=== PATIENT | male | born 1970 | race African-American/Black ===

== ENCOUNTER 2020-03-28 14:48 | Emergency (ER) | payer OTHER, BC ==
[2020-03-28] MEDS ORDERED: Ibuprofen 600 MG Tab PO ONE (15:46)
--- NOTE | 2020-03-28 15:54 | EDM.PDOC ---
ED HPI GENERAL MEDICAL PROBLEM - General Chief Complaint: Skin Complaint Stated Complaint: SZYMANSKI BITE ON TOES Time Seen by Provider: 03/28/20 15:03 - History of Present Illness INITIAL COMMENTS - FREE TEXT/NARRATIVE: CHIEF COMPLAINT(S): Bilateral feet pain HISTORY OF PRESENT ILLNESS: This is a 49-year-old man without any significant past medical history who comes to the emergency department with a chief complaint of bilateral foot pain. The patient states that he thinks he has frostbite. He states that he has been experiencing bilateral foot pain which he describes as burning like [id number]. He denies any history of diabetes mellitus. He rates his pain as 5 out of 10. He denies any radiation of this pain. He states that the pain does start in his distal ends of his toes approximately 3 days ago and it is now spread to the bottom and the side of his foot. He denies any rash, fever or chills. He denies any injury to his feet. He states that he has taken aspirin without any relief. He states that at work he wears steel toe boots with wool socks and does have exposure to cold weather. He denies any numbness. He states the pain is worse when he stands on it or touches it. He denies any relieving symptoms. REVIEW OF SYSTEMS: Constitutional: Denies fever, chills. Eyes: Denies eye pain Ears, Nose, Mouth, & Throat: Denies earache Cardiovascular: Denies chest pain Respiratory: Denies shortness of breath Gastrointestinal: Denies Nausea, vomiting, diarrhea, hematochezia. Genitourinary: Denies hematuria Skin:Denies a rash MSK: Positive for bilateral toe and foot pain Neurological: Denies blurred vision, numbness, tingling Psychiatric: Denies depression PAST MEDICAL HISTORY: As per history of present illness and as reviewed below otherwise noncontributory. SURGICAL HISTORY: As per history of present illness and as reviewed below otherwise noncontributory. SOCIAL HISTORY: As per history of present illness and as reviewed below otherwise noncontributory. FAMILY HISTORY: As per history of present illness and as reviewed below otherwise noncontributory. EXAMINATION OF ORGAN SYSTEMS/BODY AREAS: Constitutional: Blood pressure was 111/70, heart rate 72, respiratory rate 16 with an oxygen saturation of 100% on room air. Temperature 36.6 General: Overall well-appearing man who is in no acute distress. Psychiatric: Appropriate mood and affect. Eyes: No scleral icterus or conjunctival erythema ENMT: Moist mucous membranes. No pharyngeal erythema Cardiovascular: Regular, rate, and rhythm. No gallops, murmurs, or rubs. Bilateral upper extremity and lower extremity pulses symmetric and intact. No peripheral edema. No JVD. Respiratory: Lungs clear to auscultation bilaterally. No wheezes, rales, or rhonchi. Musculoskeletal: Normal range of motion. The patient is able to ambulate without any difficulty. The patient's bilateral feet are tender to palpation along all toes and on the plantar aspect of the patient's foot and lateral side. There is no skin changes or blistering. Sensation is intact Skin: No lesions or abrasions. Neurological: Alert, GCS 15 distal sensation is intact MEDICAL DECISION MAKING AND COURSE IN THE ED WITH INTERPRETATION/REVIEW OF DIAGNOSTIC STUDIES: This is a 49-year-old man without any significant past medical history who comes to the emergency department with what appears to be mild frostbite secondary exposure given the negative degree weather here in [facility]. There are no blisters or anything abnormal with the skin. I did discuss with him that I would like him to refrain from being exposed to the cold and that I would provide him with a work excuse to do indoor work only for approximately 1 week. I discussed them at this time that it is important that he continue to use Motrin for pain relief and to elevate his legs while he is at home. I discussed if he continues to expose his feet to cold weather that the pain and injury will likely worsen. I discussed that the pain can take months to go away. He is to follow-up with his primary care physician for any further evaluation. He is to return to the emergency department for any new or worsening symptoms. He was amenable to discharge at this time and had no further questions DISPOSITION: The patient was discharged home in stable condition. The patient will follow up with primary care physician within 1 week for further evaluation CONDITION: Fair PROCEDURES: None FINAL IMPRESSION(S)/DIAGNOSES: 1. Acute mild frostbite to bilateral feet Henri Palm M.D. Bilateral feet Pain Score (Numeric/FACES): 8 - Related Data Allergies Allergy/AdvReac Type Severity Reaction Status Date / Time No Known Allergies Allergy Verified 03/28/20 15:19 Home Meds: Home Meds Acetaminophen [Tylenol Extra Strength] 500 mg PO Q6H #56 tab 03/28/20 [Rx] Ibuprofen 400 mg PO Q6HR #56 tablet 03/28/20 [Rx] Past Medical History - Past Health History Medical/Surgical History: Denies Medical/Surgical History - Infectious Disease History Infectious Disease History: Reports: None Social & Family History - Tobacco Use Tobacco Use Status *Q: Never Tobacco User - Recreational Drug Use Recreational Drug Use: No ED ROS GENERAL - Review of Systems Review Of Systems: See Below ED EXAM, SKIN/RASH Exam: See Below Course - Vital Signs Last Recorded V/S: Last Vital Signs Temp 36.6 C 03/28/20 15:32 Pulse 65 03/28/20 16:03 Resp 18 03/28/20 16:03 BP 124/85 03/28/20 16:03 Pulse Ox 99 03/28/20 16:03 - Orders/Labs/Meds Meds: Medications Discontinued Medications Generic Name Dose Route Start Last Admin Trade Name Ross PRN Reason Stop Dose Admin Ibuprofen 600 mg 03/28/20 15:46 03/28/20 16:03 Motrin PO 03/28/20 15:47 600 mg ONETIME ONE Administration Departure - Departure Time of Disposition: 15:49 Disposition: Home, Self-Care 01 Condition: Good, Fair Clinical Impression: Frostbite Qualifiers: Encounter type: initial encounter Qualified Code(s): T33.90XA - Superficial frostbite of unspecified sites, initial encounter - Discharge Information *PRESCRIPTION DRUG MONITORING PROGRAM REVIEWED*: No *COPY OF PRESCRIPTION DRUG MONITORING REPORT IN PATIENT MAK: No Prescriptions: Ibuprofen 400 mg PO Q6HR #56 tablet Acetaminophen [Tylenol Extra Strength] 500 mg PO Q6H #56 tab Instructions: Frostbite, [id number] Referrals: PCP,None [Primary Care Provider] - Forms: ED Department Discharge Additional Instructions: You were evaluated today on an emergent basis. At this time you do have mild frostbite to your bilateral feet. I recommend refraining from cold environments as repeated exposure to the cold environment is going to make the frostbite worse. You should refrain from cold environment for at least 1 week. I recommend using Tylenol 500 mg to 1000 mg every 6 hours and ibuprofen 400 mg to 600 mg every 6 hours for pain relief. Please keep your feet warm and dry. While at home please elevate your legs above your heart to decrease swelling and edema. If you develop any blisters please return to the emergency department. Otherwise please follow-up with primary care physician within 1 week for further evaluation. [facility] - Primary [facility] [address] [place] [address] [facility] [address] [place] [id number] The patient is informed of any results of their evaluation and diagnostic workup and all questions are answered. They are given discharge instructions and return precautions. The patient is stable for discharge. The patient states they understand and agree with the plan and that they will return if their symptoms get worse or if they have any new concerns. The following information is given to patients seen in the emergency department who are being discharged to home. This information is to outline your options for follow-up care. We provide all patients seen in our emergency department with a follow-up referral. The need for follow-up, as well as the timing and circumstances, are variable depending upon the specifics of your emergency department visit. If you don't have a primary care physician on staff, we will provide you with a referral. We always advise you to contact your personal physician following an emergency department visit to inform them of the circumstance of the visit and for follow-up with them and/or the need for any referrals to a consulting specialist. The emergency department will also refer you to a specialist when appropriate. This referral assures that you have the opportunity for follow-up care with a specialist. All of these measure are taken in an effort to provide you with optimal care, which includes your follow-up. Under all circumstances we always encourage you to contact your private physician who remains a resource for coordinating your care. When calling for follow-up care, please make the office aware that this follow-up is from your recent emergency room visit. If for any reason you are refused follow-up, please contact the [facility] Emergency Department at and asked to speak to the emergency department charge nurse. Sepsis Event Note (ED) - Evaluation Sepsis Screening Result: No Definite Risk - Focused Exam Vital Signs: Vital Signs Temp Pulse Resp BP Pulse Ox 03/28/20 16:03 65 18 124/85 99 03/28/20 15:32 36.6 C 72 16 111/70 100 03/28/20 15:19 36.4 C
== END 2020-03-28 16:07 | disposition home or self-care (01) ==
LOC: MW.ED 14:48
DX: T33.822A Superficial frostbite of left foot, initial encounter (principal); T33.821A Superficial frostbite of right foot, initial encounter; X31.XXXA Exposure to excessive natural cold, initial encounter
CPT/HCPCS: 99283; A9270

== ENCOUNTER 2022-01-29 11:05 | Emergency (ER) | payer BC, OTHER | END 2022-01-29 13:42 | disposition home or self-care (01) | LOC: MW.ED 11:05 | DX: S09.90XA Unspecified injury of head, initial encounter (principal); S63.502A Unspecified sprain of left wrist, initial encounter; W10.9XXA Fall (on) (from) unspecified stairs and steps, initial encounter; Y92.89 Other specified places as the place of occurrence of the external cause; Y99.0 Civilian activity done for income or pay | CPT/HCPCS: 70450; 70450-26; 73080-26-LT; 73080-LT; 73110-26-LT; 73110-LT; 99283 ==

== ENCOUNTER 2022-08-06 05:48 | Observation (INO) | payer SELFPAY ==
[2022-08-06] MEDS ORDERED: Albuterol/Ipratropium 3.0-0.5 MG/3 ML Neb Soln ONE (05:55)
[2022-08-06] MEDS ORDERED: Sodium Chloride 0.9% 10 ML Syringe FLUSH PRN ×2 (06:02→11:21)
[2022-08-06] MEDS ORDERED: Sodium Chloride 0.9% 1,000 ML IV ONE (06:02)
[2022-08-06] MEDS ORDERED: methylPREDNISolone Sodium Succinate 125 MG/2 ML SDV IVPUSH ONE (06:02)
[2022-08-06] MEDS ORDERED: Sodium Chloride 0.9% 2.5 ML Syringe FLUSH PRN ×2 (06:02→11:21)
[2022-08-06] MEDS ORDERED: Albuterol/Ipratropium 3.0-0.5 MG/3 ML Neb Soln NEB ONE (06:03)
[2022-08-06] MEDS ORDERED: Albuterol 0.083% 2.5 MG/3 ML Neb Soln NEB ONE ×2 (06:22→07:18)
[2022-08-06 06:27] LABS: BASOPHILS PERCENT AUTO 0.7 % (0.0-1.5); EOSINOPHILS ABSOLUTE AUTO 0.9 K/uL (0.0-0.7); EOSINOPHILS PERCENT AUTO 17.1 % (0.0-7.0); HEMATOCRIT 46.4 % (38.0-50.0); HEMOGLOBIN 15.7 g/dL (13.0-17.0); LYMPHOCYTES ABSOLUTE AUTO 2.6 K/uL (0.6-2.4); LYMPHOCYTES PERCENT AUTO 47.3 % (16.0-40.0); MEAN CORPUSCULAR HEMOGLOBIN 31.6 pg (27.0-32.0); MEAN CORPUSCULAR HGB CONC 33.8 g/dL (31.0-37.0); MEAN CORPUSCULAR VOLUME 93.4 fL (80.0-98.0); MONOCYTES ABSOLUTE AUTO 0.5 K/uL (0.0-0.8); MONOCYTES PERCENT AUTO 8.4 % (0.0-15.0); NEUTROPHILS ABSOLUTE AUTO 1.5 K/uL (1.4-5.7); NEUTROPHILS PERCENT AUTO 26.5 % (48.0-80.0); NRBC ABSOLUTE 0 K/uL; PLATELET COUNT,PLT 256 K/uL (150-400); RED BLOOD CELL COUNT 4.97 M/uL (4.50-5.90)
[2022-08-06 06:52] LABS: A/G RATIO 0.9 (0.9-1.6); ALANINE AMINOTRANSFERASE,ALT 27 IU/L (14-63); ALBUMIN 3.7 g/dL (3.4-5.0); ALKALINE PHOSPHATASE 77 U/L (46-116); ASPARTATE AMNIOTRANSFERASE,AST 28 IU/L (15-37); BILIRUBIN TOTAL 0.3 mg/dL (0.2-1.0); BLOOD UREA NITROGEN,BUN 13 mg/dL (7.0-18.0); CALCIUM 8.5 mg/dL (8.5-10.1); CARBON DIOXIDE,CO2 29.3 mmol/L (21.0-32.0); CHLORIDE,CL 104 mmol/L (98-107); CREATININE 1.4 mg/dL (0.8-1.3); GLUCOSE RANDOM 97 mg/dL (74-106); POTASSIUM,K 4.1 mmol/L (3.5-5.1); PROTEIN TOTAL,TP 7.7 g/dL (6.4-8.2); SODIUM,NA 140 mmol/L (136-148); TSH ULTRASENSITIVE 1.22 uIU/mL (0.36-3.74)
[2022-08-06 07:12] LABS: D-DIMER QUANTITATIVE < 0.19 mg/L FEU (0.00-0.50)
[2022-08-06] MEDS ORDERED: Lidocaine 4% 1 each Patch TOP STA (07:18)
[2022-08-06 07:20] LABS: ESTIMATED GFR 60 mL/min (>60)
[2022-08-06] MEDS ORDERED: Iopamidol 755 MG/ML 500 ML Multipack Bottle IVPUSH ONE (08:34)
[2022-08-06] MEDS ORDERED: Azithromycin 500 MG in Sodium Chloride 0.9% 250 ML IV ONE (10:35)
[2022-08-06] MEDS ORDERED: cefTRIAXone 2 GM in Sodium Chloride 0.9% 50 ML IV ONE (10:35)
[2022-08-06] MEDS ORDERED: Acetaminophen 325 MG Tab PO PRN (11:21)
[2022-08-06] MEDS ORDERED: Benzonatate 100 MG Cap PO PRN (11:21)
[2022-08-06] MEDS ORDERED: Ondansetron 4 MG/2 ML SDV IVPUSH PRN (11:21)
[2022-08-06] MEDS ORDERED: Albuterol 0.083% 2.5 MG/3 ML Neb Soln NEB PRN (11:21)
[2022-08-06] MEDS ORDERED: Docusate Sodium 100 MG Cap PO PRN (11:21)
[2022-08-06] MEDS: Loratadine 10 MG Tab PO SCH (12:53)
[2022-08-06] MEDS: Fluticasone NASAL Spray 16 GM Bottle NASBOTH SCH (12:55)
[2022-08-06 13:53] LABS: CORONAVIRUS COVID-19 NAA NEGATIVE (NEGATIVE); INFLUENZA A NAA NEGATIVE (NEGATIVE); INFLUENZA B NAA NEGATIVE (NEGATIVE)
[2022-08-06] MEDS: Albuterol/Ipratropium 3.0-0.5 MG/3 ML Neb Soln NEB SCH ×3 (14:11→21:01)
[2022-08-06] MEDS: methylPREDNISolone Sodium Succinate 40 MG/1 ML SDV IVPUSH SCH ×2 (14:34→21:01)
[2022-08-06] MEDS ORDERED: Montelukast 10 MG Tab PO SCH (21:00)
[2022-08-07] MEDS: Albuterol/Ipratropium 3.0-0.5 MG/3 ML Neb Soln NEB SCH ×4 (02:54→14:43)
[2022-08-07] MEDS: methylPREDNISolone Sodium Succinate 40 MG/1 ML SDV IVPUSH SCH ×2 (05:51→14:43)
[2022-08-07 06:20] LABS: HEMOGLOBIN 14.6 g/dL (13.0-17.0); LYMPHOCYTES ABSOLUTE AUTO 0.9 K/uL (0.6-2.4); LYMPHOCYTES PERCENT AUTO 8.1 % (16.0-40.0); MEAN CORPUSCULAR HEMOGLOBIN 30.7 pg (27.0-32.0); MEAN CORPUSCULAR HGB CONC 33.2 g/dL (31.0-37.0); MEAN CORPUSCULAR VOLUME 92.6 fL (80.0-98.0); MONOCYTES ABSOLUTE AUTO 0.5 K/uL (0.0-0.8); MONOCYTES PERCENT AUTO 4.3 % (0.0-15.0); NEUTROPHILS ABSOLUTE AUTO 10.1 K/uL (1.4-5.7); NEUTROPHILS PERCENT AUTO 87.6 % (48.0-80.0); NRBC ABSOLUTE 0 K/uL; PLATELET COUNT,PLT 240 K/uL (150-400); RED BLOOD CELL COUNT 4.75 M/uL (4.50-5.90); WHITE BLOOD CELL COUNT,WBC 11.58 K/uL (4.0-11.0)
[2022-08-07 06:56] LABS: CALCIUM 8.7 mg/dL (8.5-10.1); CARBON DIOXIDE,CO2 24.4 mmol/L (21.0-32.0); CREATININE 1.3 mg/dL (0.8-1.3); EST CRCL DRUG DOSING (CG) 66.25 mL/min; MAGNESIUM 1.6 mg/dL (1.8-2.4); POTASSIUM,K 3.5 mmol/L (3.5-5.1)
[2022-08-07] MEDS: Loratadine 10 MG Tab PO SCH (08:13)
[2022-08-07] MEDS: Fluticasone NASAL Spray 16 GM Bottle NASBOTH SCH (08:14)
[2022-08-07] MEDS ORDERED: Magnesium Sulfate/Water 2 GM in Premix Bag 1 BAG IV ONE ×3 (08:39→12:00)
[2022-08-07] MEDS ORDERED: Magnesium Sulfate/Water 2 GM/50 ML Premix Bag IV ONE (10:03)
[2022-08-07] MEDS ORDERED: cefTRIAXone 1 GM in Sodium Chloride 0.9% 50 ML IV SCH (11:00)
[2022-08-07] MEDS ORDERED: Azithromycin 250 MG Tab PO SCH (12:00)
== END 2022-08-07 15:45 | disposition home or self-care (01) ==
LOC: MW.ED 05:48 → MW.MS 10:50
PROVIDERS: ADMIT Internal Medicine; ATTEND Internal Medicine
DX: J96.01 Acute respiratory failure with hypoxia (principal); J45.41 Moderate persistent asthma with (acute) exacerbation; R04.2 Hemoptysis; Z20.822 Contact with and (suspected) exposure to COVID-19; Z98.890 Other specified postprocedural states; Z79.899 Other long term (current) drug therapy; Z79.52 Long term (current) use of systemic steroids
CPT/HCPCS: 0240U; 36415; 71045; 71275; 80048; 80053; 83735; 84443; 84484; 85025; 85379; 85610; 93005; 94640; 96361; 96365; 96366; 96367; 96368; 96375; 96376; 99285; A9270; G0378; J0456; J0696; J2920; J2930; J3475; J3490; J7030; J7050; Q9967; 93010; 99284; J7620-GY